=== PATIENT | male | born 1960 | race African-American/Black ===

== ENCOUNTER 2019-05-12 19:21 | Emergency (ER) | payer BC ==
--- NOTE | 2019-05-12 19:35 | PDOC ---
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 Patient reports weakness is new onset today; pain w/ urination has been constant since his biopsy. Patient also reports he saw pustulent material at the end of his urinary stream today. Patient reports he may have had subjective fever as well. Patient denies any sexual dysfunction or concern for STI's at this time. No other complaints. Urologist Dr. James Eubanks. The patient denies chest pain, shortness of breath, headache and dizziness. Denies nausea, vomit, diarrhea and constipation. Past History - Past Medical History Allergies/Adverse Reactions: Allergies Allergy/AdvReac Type Severity Reaction Status Date / Time No Known Allergies Allergy Verified 05/12/19 19:44 Home Medications: Ambulatory Orders Doxycycline Hyclate [Vibramycin] 100 mg PO BID #26 capsule 05/12/19 Review of Systems - Review of Systems Comments:: 05/12/19 21:07 GENERAL/CONSTITUTIONAL: +Subjective fever/chills w/ generalized weakness. HEAD, EYES, EARS, NOSE AND THROAT: No change in vision. No ear pain or discharge. No sore throat. CARDIOVASCULAR: No chest pain or shortness of breath RESPIRATORY: No cough, wheezing, or hemoptysis. GASTROINTESTINAL: No nausea, vomiting, diarrhea or constipation. GENITOURINARY: +Urinary symptoms as described. MUSCULOSKELETAL: No joint or muscle swelling or pain. No neck or back pain. SKIN: No rash NEUROLOGIC: No headache, vertigo, loss of consciousness, or change in strength/ sensation. ENDOCRINE: No increased thirst. No abnormal weight change HEMATOLOGIC/LYMPHATIC: No anemia, easy bleeding, or history of blood clots. ALLERGIC/IMMUNOLOGIC: No hives or skin allergy. *Physical Exam - Physical Exam Comments: 05/12/19 21:08 GENERAL: Awake, alert, and fully oriented, in no acute distress HEAD: No signs of trauma, normocephalic, atraumatic EYES: PERRLA, EOMI, sclera anicteric, conjunctiva clear ENT: Auricles normal inspection, hearing grossly normal, nares patent, oropharynx clear without exudates. Moist mucosa NECK: Normal ROM, supple, no lymphadenopathy, JVD, or masses LUNGS: No distress, speaks full sentences, clear to auscultation bilaterally HEART: Regular rate and rhythm, normal S1 and S2, no murmurs, rubs or gallops, peripheral pulses normal and equal bilaterally. ABDOMEN: Soft, nontender, normoactive bowel sounds. No guarding, no rebound. No masses EXTREMITIES: Normal inspection, Normal range of motion, no edema. No clubbing or cyanosis. NEUROLOGICAL: Cranial nerves II through XII grossly intact. Normal speech, normal gait, no focal sensorimotor deficits SKIN: Warm, Dry, normal turgor, no rashes or lesions noted. ED Treatment Course - LABORATORY CBC & Chemistry Diagram: 05/12/19 20:10 05/12/19 20:10 Medical Decision Making - Medical Decision Making 05/12/19 21:08 Dr. Ashford is a 58 yo male w/ pmh as described who presents for evaluation of symptoms concerning for sepsis vs. prostatitis vs. UTI. Patient evaluated w/ sepsis workup given recent instrumentation. Patient labs significant for elevated WBC as below and positive urine. Patient will be given ABX IV and outpatient Rx for prostatitis and discharged to home. No concern for other acute process at this time. Laboratory Results - last 24 hr 05/12/19 05/12/19 05/12/19 20:10 20:10 20:10 WBC 13.9 H RBC 4.71 Hgb 12.6 Hct 39.2 MCV 83.2 MCH 26.7 MCHC 32.1 RDW 15.5 Plt Count 184 MPV 8.9 Absolute Neuts (auto) 11.7 H Neutrophils % 83.6 H Lymphocytes % 10.1 Monocytes % 5.4 Eosinophils % 0.4 Basophils % 0.5 Nucleated RBC % 0 PT with INR 13.00 INR 1.10 H PTT (Actin FS) 31.1 Sodium Potassium Chloride Carbon Dioxide Anion Gap BUN Creatinine Est GFR (CKD-EPI)AfAm Est GFR (CKD-EPI)NonAf Random Glucose Lactic Acid Calcium Total Bilirubin AST ALT Alkaline Phosphatase Troponin I Total Protein Albumin Urine Color Yellow Urine Appearance Cloudy Urine pH >= 9.0 H Ur Specific [place] 1.019 Urine Protein Trace Urine Glucose (UA) Negative Urine Ketones Negative Urine Blood Trace Urine Nitrite Negative Urine Bilirubin Negative Urine Urobilinogen 1.0 Ur Leukocyte Esterase 3+ H Urine WBC (Auto) 286 Urine RBC (Auto) 8 Urine Casts (Auto) 0 U Epithel Cells (Auto) 0 Urine Bacteria (Auto) 18.6 05/12/19 05/12/19 05/12/19 20:10 20:10 20:10 WBC RBC Hgb Hct MCV MCH MCHC RDW Plt Count MPV Absolute Neuts (auto) Neutrophils % Lymphocytes % Monocytes % Eosinophils % Basophils % Nucleated RBC % PT with INR INR PTT (Actin FS) Sodium 139 Potassium 4.1 Chloride 106 Carbon Dioxide 30 Anion Gap 3 L BUN 16.6 Creatinine 1.1 Est GFR (CKD-EPI)AfAm 84.71 Est GFR (CKD-EPI)NonAf 73.09 Random Glucose 101 Lactic Acid 0.8 Calcium 7.4 L Total Bilirubin 0.5 AST 14 L ALT 15 Alkaline Phosphatase 72 Troponin I < 0.02 Cancelled Total Protein 7.5 Albumin 3.6 Urine Color Urine Appearance Urine pH Ur Specific [place] Urine Protein Urine Glucose (UA) Urine Ketones Urine Blood Urine Nitrite Urine Bilirubin Urine Urobilinogen Ur Leukocyte Esterase Urine WBC (Auto) Urine RBC (Auto) Urine Casts (Auto) U Epithel Cells (Auto) Urine Bacteria (Auto) *DC/Admit/Observation/Transfer Diagnosis at time of Disposition: Prostatitis Qualifiers: Prostatitis type: unspecified Qualified Code(s): N41.9 - Inflammatory disease of prostate, unspecified - Discharge Dispostion Condition at time of disposition: Fair - Prescriptions Prescriptions: Doxycycline Hyclate [Vibramycin] 100 mg PO BID #26 capsule - Referrals - Patient Instructions Printed Discharge Instructions: DI for Acute Prostatitis Additional Instructions: You were evaluated today in the ER for your symptoms. Given your recent procedure we believe you have a prostate infection at this time. We started you on IV antibiotics in the ER and sent a prescription to your pharmacy. Please take all medications as proscribed. Follow-up with urologist for further evaluation next week. Return to ER if any increase in pain, worsening of fever/ weakness, or other concerning symptoms. We hope you feel better soon. - Post Discharge Activity
[2019-05-12] MEDS ORDERED: CEFTRIAXONE 1,000 MG in DEXTROSE 5%-WATER - 50 ML IVPB ONE (19:42)
[2019-05-12 19:45] VITALS: BMI 27.1
[2019-05-12] MEDS ORDERED: SODIUM CHLORIDE 1,000 ML IV STA (19:46)
[2019-05-12] MEDS ORDERED: DOXYCYCLINE HYCLATE 100 MG CAPSULE PO ONE ×2 (19:46→19:57)
[2019-05-12] MEDS ORDERED: CEFTRIAXONE 1 GM/50 ML BAG ONE (19:57)
--- NOTE | 2019-05-12 20:15 | PDOC ---
Documentation entered by Luis Stiles SCRIBE, acting as scribe for Jay Groves MD. Jay Groves MD: This documentation has been prepared by the Go agarwal Nirvannie, SCRIBE, under my direction and personally reviewed by me in its entirety. I confirm that the documentation accurately reflects all work, treatment, procedures, and medical decision making performed by me. Attending Attestation - Resident Resident Name: [email or web address] - ED Attending Attestation I have performed the following: I have examined & evaluated the patient, The case was reviewed & discussed with the resident, I agree w/resident's findings & plan - HPI HPI: 05/12/19 20:01 The patient is a 58 year old male, with a significant past medical history of HTN, who presents to the emergency department with, dysuria and hematuria. He denies any recent fevers, chills, headache or dizziness. He denies any recent chest pain or shortness of breath. Allergies: NKDA 05/12/19 20:15 Patient is s/p prostate biopsy on 04/21 with progressively improving hematuria since that date. Yesterday he noted terminal dysuria with a small amount of whitish discharge. No measured fevers at home but he endorses chills. No other complaints. Sexually active with one monogamous partner. No high risk behaviors - Physicial Exam PE: 05/12/19 22:23 Agree with exam as documented by resident - Medical Decision Making 05/12/19 20:17 Dysuria s/p recent instrumentation of prostate Well appearing, likely uncomplicated prostatitis f/u labs dose of abx here dispo per clinical course 05/12/19 22:24 DC with rx to pharmacy of choice f/u urology
[2019-05-12 20:22] LABS: BASO % 0.5 % (0-2.0); EOS % 0.4 % (0-4.5); HEMATOCRIT 39.2 % (35.4-49); HEMOGLOBIN 12.6 GM/dL (11.7-16.9); LYMPH % 10.1 % (8-40); MCH 26.7 pg (25.7-33.7); MCHC 32.1 g/dl (32.0-35.9); MEAN CELL VOLUME 83.2 fl (80-96); MEAN PLT VOLUME 8.9 fl (7.5-11.1); MONO % 5.4 % (3.8-10.2); NEUT % 83.6 % (42.8-82.8); PLATELET COUNT 184 K/MM3 (134-434); RBC 4.71 M/mm3 (4.00-5.60); RDW 15.5 % (11.9-15.9); WHITE BLOOD COUNT 13.9 K/mm3 (4.0-10.0)
[2019-05-12 20:31] LABS: EPI CELLS 0 /HPF (0-5/HPF); HYALINE CASTS 0 /lpf (0-8); PH,URINE >= 9.0 (5.0-8.0); URINE APPEARANCE CLOUDY; URINE BACTERIA 18.6 /hpf (NEGATIVE); URINE BILIRUBIN NEGATIVE (NEGATIVE); URINE COLOR YELLOW; URINE GLUCOSE (UA) NEGATIVE (NEGATIVE); URINE KETONE NEGATIVE (NEGATIVE); URINE LEUK ESTERASE 3+ (NEGATIVE); URINE NITRITE NEGATIVE (NEGATIVE); URINE PROTEIN TRACE (NEGATIVE); URINE RBC 8 /hpf (0-4); URINE WBC 286 /hpf (0-5)
[2019-05-12 20:33] LABS: INR 1.1 (0.83-1.09)
[2019-05-12 20:36] LABS: ACTIVATED PTT 31.1 SECONDS (25.2-36.5)
[2019-05-12] MEDS ORDERED: ACETAMINOPHEN 500 MG TABLET (FP) PO ONE (20:42)
[2019-05-12] MEDS ORDERED: ACETAMINOPHEN 325 MG TABLET (FP) ONE (21:00)
[2019-05-12 21:02] LABS: ALBUMIN 3.6 g/dl (3.4-5.0); ALK PHOS 72 U/L (45-117); ANION GAP 3 MMOL/L (8-16); BILIRUBIN,TOTAL 0.5 mg/dL (0.2-1); BLOOD UREA NITROGEN 16.6 mg/dL (7-18); CALCIUM 7.4 mg/dL (8.5-10.1); CHLORIDE 106 mmol/L (98-107); CO2 30 mmol/L (21-32); CREATININE 1.1 mg/dL (0.55-1.3); GLUCOSE,RANDOM 101 mg/dL (74-106); POTASSIUM 4.1 mmol/L (3.5-5.1); SGOT/AST 14 U/L (15-37); SGPT/ALT 15 U/L (13-61); SODIUM 139 mmol/L (136-145); TOT PROT 7.5 g/dl (6.4-8.2)
[2019-05-13] MEDS ORDERED: DOXYCYCLINE HYCLATE 100 MG CAPSULE PO ONE ×2 (06:06→06:17)
[2019-05-13] MEDS ORDERED: CEFTRIAXONE 1,000 MG in DEXTROSE 5%-WATER - 50 ML IVPB ONE (06:06)
[2019-05-13] MEDS ORDERED: CEFTRIAXONE 1 GM/50 ML BAG ONE (06:17)
[2019-05-13 07:06] VITALS: BP 118/68; PULSE 81; TEMP 98.5
== END 2019-05-13 07:06 | disposition home or self-care (01) ==
LOC: JER 19:21
PROC: 3E03329 Introduction of Other Anti-infective into Peripheral Vein, Percutaneous Approach (ICD-10-PCS; principal; 2019-05-12)
PROC: 3E0337Z Introduction of Electrolytic and Water Balance Substance into Peripheral Vein, Percutaneous Approach (ICD-10-PCS; 2019-05-12)
DX: N41.9 Inflammatory disease of prostate, unspecified (principal); I10 Essential (primary) hypertension
CPT/HCPCS: 36415; 80053; 81003; 83605; 84484; 85025; 85610; 85730; 87040; 87086; 87186; 99282-25; J7030